=== PATIENT | female | born 1995 | race Caucasian/White ===

== ENCOUNTER 2017-08-25 18:28 | Emergency (ER) | payer MEDICAID ==
[2017-08-25 23:12] LABS: UA SPECIFIC GRAVITY 1.025 (1.005-1.035); microscopic required? YES; urine erythrocyte 3+ (NEGATIVE)
[2017-08-26 00:24] VITALS: BP 121/66
== END 2017-08-26 00:24 | disposition home or self-care (01) ==
LOC: ED 18:28
PROVIDERS: Emergency Medicine
DX: O26.891 Other specified pregnancy related conditions, first trimester (principal); B96.89 Other specified bacterial agents as the cause of diseases classified elsewhere; J40 Bronchitis, not specified as acute or chronic; Z3A.00 Weeks of gestation of pregnancy not specified
CPT/HCPCS: 87491; 87591